=== PATIENT | female | born 1970 | race Asian ===

== ENCOUNTER 2018-09-05 20:02 | Emergency (ER) | payer MEDICAID ==
[~2018-09-05] VITALS: Ht 165.1 cm; Wt 61.2 kg
[2018-09-05 20:04] VITALS: BP 134/84
[2018-09-05] MEDS ORDERED: TDAP [DIPH/PERTUSSIS/TET] 0.5 ML VIAL IM ONE ×2 (20:17→20:30)
[2018-09-05] MEDS ORDERED: IBUPROFEN 600 MG TABLET PO ONE ×2 (20:41→21:00)
== END 2018-09-05 20:52 | disposition home or self-care (01) ==
LOC: ER 20:05
DX: S61.212A Laceration without foreign body of right middle finger without damage to nail, initial encounter (principal); Z98.890 Other specified postprocedural states; W45.8XXA Other foreign body or object entering through skin, initial encounter; Y93.89 Activity, other specified; Y92.002 Bathroom of unspecified non-institutional (private) residence as the place of occurrence of the external cause; Y99.8 Other external cause status
CPT/HCPCS: 90471; 90715; 99283; A6402